=== PATIENT | female | born 1990 | race Caucasian/White ===

== ENCOUNTER 2016-12-05 07:53 | Observation (INO) | payer MEDICAID, OTHER ==
[~2016-12-05] VITALS: Ht 165.1 cm; Wt 77.1 kg
[2016-12-05] MEDS ORDERED: NALBUPHINE HCL 10 MG/1ml INJECTION ONE ×2 (08:38→08:41)
[2016-12-05] MEDS ORDERED: PROCHLORPERAZINE EDISYLATE 5 MG/ML 2ML VIAL ONE (08:38)
[2016-12-05 08:46] LABS: Hematocrit 44.7 % (36.0-46.0); Hemoglobin 14.9 g/dL (12.2-16.2); Mean Corpuscular Hemoglobin 28.9 pg (28.0-32.0); Mean Corpuscular Hgb Conc. 33.3 g/dL (32.0-36.0); Mean Corpuscular Volume 86.7 fL (80.0-100.0); Mean Platelet Volume 9.3 fL (7.4-10.4); Platelet Count (auto) 403 10^3/uL (140-450); Red Cell Distribution Width 14.6 % (11.6-16.0); SUSPECT VIEW TRANSMISSION
[2016-12-05] MEDS ORDERED: SODIUM CHLORIDE 0.9% 1,000 ML IVB ONE (08:49)
[2016-12-05 08:54] LABS: Metamyelocytes % 0; Myelocytes % 0; Promyelocytes % 0; Reactive Lymphocytes 0
[2016-12-05 08:59] LABS: Urine Bilirubin Negative (Negative); Urine Color PINK (Yellow); Urine Glucose Normal (Normal); Urine Ketone Negative (Negative); Urine Mucus FEW (None Seen); Urine Nitrite Negative (Negative); Urine RBC 1064 /hpf (0 - 4); Urine Squamous Epithelial Cell FEW /hpf (<5); Urine Urobilinogen Normal (Negative); Urine pH 5.5 (5.0-8.0)
[2016-12-05] MEDS ORDERED: NALBUPHINE HCL 10 MG/1ml INJECTION IV ONE (09:00)
[2016-12-05] MEDS ORDERED: PROCHLORPERAZINE EDISYLATE 5 MG/ML 2ML VIAL IV ONE (09:00)
[2016-12-05 09:04] LABS: Urine Blood 3+ /uL (Negative)
[2016-12-05 09:04] LABS: Magnesium 2.3 mg/dL (1.6-2.6)
[2016-12-05 09:05] LABS: Albumin 3.7 g/dL (3.4-5.0); BUN/Creatinine Ratio 8.3; Bilirubin, Total 0.6 mg/dL (0.2-1.0); Potassium 3.3 mmol/L (3.5-5.1); Total Protein 8.5 g/dL (6.4-8.2)
[2016-12-05 11:54] LABS: Platelet Estimate Adequate
[2016-12-05 15:36] VITALS: BP 110/64
[2016-12-06] MEDS ORDERED: POTASSIUM CHL 10% (20 MEQ/15ML) ORAL SOLN PO SCH (10:00)
== END 2016-12-05 16:13 | disposition home or self-care (01) | DRG 392 ==
LOC: ER 07:56 → OVERFLOW 08:51
PROVIDERS: ADMIT Emergency Medicine; ATTEND Emergency Medicine
DX: K52.9 Noninfective gastroenteritis and colitis, unspecified (principal); N39.0 Urinary tract infection, site not specified; E87.6 Hypokalemia
CPT/HCPCS: 36415; 80053; 81001; 81025; 83690; 83735; 84443; 85007; 85027; 96361; 96374; 96375; 99285; G0378; J0780; J2300; J7030